=== PATIENT | female | born 1960 | race Caucasian/White ===

== ENCOUNTER 2016-04-21 09:15 | Inpatient (IN) | payer OTHER ==
[2016-04-21] VITALS (17 sets, daily range): BP systolic 81–153; BP diastolic 46–83; PULSE 74–98; TEMP 36.4–36.6; O2SAT 91–100; Ht 167.6 cm; Wt 114.6 kg
[~2016-04-21] VITALS: Ht 167.6 cm; Wt 114.6 kg
[~2016-04-21 09:15] MED LIST: OPTIRAY 320 IV PRN
[2016-04-21] MEDS ORDERED: SODIUM CHLORIDE 0.9% 1000ML 1,000 ML IV ONE (09:16)
--- NOTE | 2016-04-21 09:21 | DIAGNOSTIC IMAGING REPORT ---
CT ANGIOGRAPHY OF THE ABDOMEN AND PELVIS WITH BILATERAL LOWER EXTREMITY RUNOFF CT DOSE: 2549.03 mGy.cm CLINICAL HISTORY: Severe peripheral arterial disease with rest pain. TECHNIQUE: Helical axial images of the abdomen and pelvis and each lower extremity were obtained during arterial phase following intravenous injection of 92 cc of Optiray 320 IV. Sagittal and coronal reconstructions were reviewed as well as maximal intensity projections on an independent 3-D workstation. COMPARISON STUDY: Right lower extremity arterial Doppler April 20, 2016. FINDINGS: Lung bases are clear. Liver surface is somewhat irregular. Heterogeneity of the spleen is likely due to the phase of enhancement. Arterial phase images of the kidneys, adrenal glands and pancreas are normal. There is left colon diverticulosis without evidence for acute diverticulitis. There is no lymphadenopathy. A distal right femoral internal fixation of left knee arthroplasty are incidentally noted. There is moderate atherosclerotic plaque of the abdominal aorta. There is mild stenosis at origin the right renal artery and celiac axis with mild to moderate narrowing of the superior mesenteric artery at multiple sites. There is no significant stenosis of the right common iliac artery. There is focal moderate stenosis of the right external iliac artery. There is severe stenosis of the right common femoral artery just proximal to the bifurcation. There is moderate stenosis of the right common femoral artery more proximally. A right superficial femoral bypass graft is occluded. The right profunda is patent. There is reconstitution of flow at the level of the right popliteal artery. The right calf vessels are diminutive. The right posterior tibial artery is patent. No flow is identified within the distal right anterior tibial artery and dorsalis pedis. The right peroneal artery is patent to the level of the syndesmosis. There is mild stenosis at the origin of the left common iliac artery. There is mild stenosis of the left external iliac artery. There is moderate plaque within the left superficial femoral artery with mild stenosis within the proximal aspect of the left SFA. The left popliteal, posterior tibial, peroneal and anterior tibial arteries are patent although the vessels are diminutive. IMPRESSION: 1. Occlusion of the right superficial femoral artery bypass graft with reconstitution of flow at the level of the popliteal artery. Inflow disease with severe stenosis of the right common femoral artery just proximal to the bifurcation. Patent right profunda. Diminutive right calf vessels with patent peroneal and posterior tibial arteries. No flow identified within the distal right anterior tibial artery and dorsalis pedis. 2. Moderate atherosclerotic plaque within the left lower extremity with mild multifocal stenoses, as described above. Patent left anterior tibial, posterior tibial and peroneal arteries. 3. Moderate plaque of the aortoiliac system, as described above. No aneurysm. Mild stenosis of the right external iliac artery. 4. Lobulated surface contour of the liver which raises the possibility of early cirrhosis. Electronically signed by: Berto Prince M.D. 04/21/2016 9:20 AM Dictated Date/Time: 04/21/2016 8:55 AM
[2016-04-21] MEDS ORDERED: MIDAZOLAM HCL 1 MG/ML 2ML VIAL ONE (10:00)
[2016-04-21] MEDS ORDERED: CEFAZOLIN 3000 MG/65 ML D5W IV SCH (10:00)
[2016-04-21] MEDS ORDERED: FENTANYL CITRATE INJ 50 MCG/1 ML 2 ML VIAL ONE ×2 (10:00→11:31)
[2016-04-21] MEDS ORDERED: PROPOFOL IV EMULSION 10 MG/ML 20 ML VIAL IV ONE (10:00)
[2016-04-21] MEDS ORDERED: PHENYLEPHRINE HCL INJ 10 MG/ML VIAL ONE ×3 (10:00→12:21)
[2016-04-21] MEDS ORDERED: LIDOCAINE HCL 2% 2 ML VIAL (20MG/ML) ONE (10:00)
[2016-04-21] MEDS ORDERED: ROCURONIUM BROMIDE 10 MG/ML 5 ML VIAL ONE ×2 (10:00→13:27)
--- NOTE | 2016-04-21 10:01 | History and Physical ---
History & Physical Date Apr 21, 2016. (Karina Marsh, KOBY) Chief Complaint RLE pain, occluded BPG (Karina Marsh PA-C) History of Present Illness The patient is a 56 year old female with hx of RLE PAD, s/p RLE prosthetic fem- pop BPG performed d/t limiting claudication, HTN, CAD, depression, GERD, COPD, lumbar disc disease, osteoarthritis, seen today after abnormal CTA demonstrating RLE BPG occlusion and comm fem art occlusion, with rest pain. Pt states she had RLE BPG performed at [facility] on 04/06/15, had R groin infection postoperatively which required debridement and wound vac. States she seemed to ambulate better for a time, however, she continued to have some presumed neurogenic claudication which was less severe. States she was doing OK until 4 days ago when she developed severe pain, numbness and coolness of R foot, particularly while lying in bed, which kept her awake for 2 nights. States she had an appt with her PCP 3 days later and they sent her to [facility], where testing was done that demonstrated her R BPG was occluded. CTA this AM confirmed. States her severe pain has subsided, but continues with short distance claudication at approx 20 steps. Denies GONZALEZ, fever, chills, chest pain , SOB, abd pain, N/V, recent illness, cough, ulcerations, other complaints. States she stopped smoking cigarettes as of last evening. (Karina Marsh, KOBY) Allergies Coded Allergies: Aspirin (Unverified Allergy, Unknown, ?, 04/21/16) Metronidazole (Unverified Allergy, Unknown, ?, 04/21/16) Pravastatin (Unverified Allergy, Unknown, ?, 04/21/16) Rosuvastatin (Unverified Allergy, Unknown, ?, 04/21/16) Surgical / Medical History Hx Cardiac Surgery: No Hx Orthopedic: Yes Hx Urinary Tract Surgery: No Past Medical/Surgical History: COPD, Depression, Heart Disease, High Cholesterol, Hypertension, Kidney Disease (Karina Marsh, KOBY) Family History +HTN, CAD, DMII (Karina Marsh PA-C) Social History Smoking Status: Current Every Day Smoker Hx Tobacco Use In Past Year?: Yes Hx Alcohol Use - Type & Amnt: No Hx Substance Use -Type & Amnt: No (Karina Marsh PA-C) Review of Systems Constitutional: No chills, No fever, No malaise Skin: No change in color Eyes: No visual changes ENMT: No sore throat Respiratory: No SOLARES, No cough, No hemoptysis, No short of breath Cardiovascular: + intermittent claudication, No chest pain, No edema, No palpitations Gastrointestinal: No abdominal pain, No nausea, No vomiting Genitourinary - Female: No dysuria, No hematuria Neurologic: + numbness, + paresthesia, No dizziness, No lethargy (Karina Marsh PA-C) Physical Exam Constitutional: General Apperance: well-nourished, well-developed, obese Level of Distress: NAD, chronically ill Ambulation: ambulating normally Psychiatric: Mental Status: active & alert, normal mood, normal affect Orientation: oriented except where noted, to time, to place, to person Memory: recent memory normal, remote memory normal Head: normocephalic, atraumatic Eyes: EOM: EOMI ENMT: normal ENT inspection, hearing grossly normal Neck: no masses, FROM Lungs: Respiratory effort: no dyspnea Auscultation: no rales/crackles, no rhonchi, decreased breath sounds Cardiovascular: Apical Impulse: not displaced Heart Auscultation: RRR, no rubs, no gallops Peripheral Pulses: Pulses: full and equal, in all extremities except if noted Bruits: none appreciated Carotid Pulse: normal on the left, normal on the right Brachial Pulses: normal on the left, normal on the right Radial Pulse: normal on the left, normal on the right Femoral Pulse: normal on the left, absent on the right Posterior Tibialis Pulse: doppler (on LLE) Dorsalis Pedis Pulse: decreased on the left, doppler (very faint doppler RLE ) Abdomen: Bowel Sounds: normal Inspection & Palpation: soft, non-distended, no tenderness, guarding & rebound Musculoskeletal: normal strength (5/5 throughout), normal tone Extremities: Upper Right: no cyanosis, no edema, no varicosities Upper Left: no cyanosis, no edema, no varicosities Lower Right: pertinent finding (R knee with large chronic scar, hyperemic) Lower Left: no cyanosis, no edema, no varicosities Neurologic: Cranial Nerves: grossly intact Sensation: abnormal (decreased to RLE) (Karina Marsh, PA-C) Assessment and Plan ASSESSMENT and PLAN: RLE severe PAD with rest pain Occluded prosthetic BPG R Comm fem art occlusion Pt imaging reviewed by Dr Cochran. D/T severe sx, pt recommended to undergo R comm fem endarterectomy, and possible RLE thrombectomy and angiography with intervention. Procedure, risks, benefits and alternarives discussed with pt, she expresses understanding and agreement. (Karina Marsh, PA-C) Patient was seen, examined, and chart reviewed. Agree with exam and treatment plan of the Vascular PA. I have discussed the risks options and benefits of the procedure with the patient. The patient understands the risks options and benefits and agrees to the procedure. (Christoph Cochran M.D.)
[2016-04-21 10:05] LABS: HEMATOCRIT 40.1 % (37-47); MEAN CELL VOLUME 94.1 fL (80-100); MEAN CORPUSCULAR HEMOGLOBIN 31.7 pg (25-34); MEAN PLATELET VOLUME 9.4 fL (7.4-10.4); PLATELET COUNT 251 K/uL (130-400); RED BLOOD COUNT 4.26 M/uL (4.2-5.4); WHITE BLOOD COUNT 9.13 K/uL (4.8-10.8)
[2016-04-21 10:09] LABS: MEAN CORPUSCULAR HGB CONC 33.7 g/dl (32-36)
[2016-04-21] MEDS ORDERED: OMEG10007 PO (10:11)
[2016-04-21] MEDS ORDERED: GABA-113 PO (10:11)
[2016-04-21] MEDS ORDERED: METO25TA3 PO (10:11)
[2016-04-21] MEDS ORDERED: CHOL2000 PO (10:11)
[2016-04-21] MEDS ORDERED: VENL75CA PO (10:11)
[2016-04-21] MEDS ORDERED: DOCU-94 PO (10:11)
[2016-04-21] MEDS ORDERED: FERR1TAB23 PO (10:11)
[2016-04-21] MEDS ORDERED: MAGN400T6 PO (10:11)
[2016-04-21] MEDS ORDERED: VENL150C PO (10:11)
[2016-04-21] MEDS ORDERED: MULT-506 PO (10:12)
[2016-04-21] MEDS ORDERED: PRLSR20 PO (10:12)
[2016-04-21] MEDS ORDERED: SIMV40TA2 PO (10:12)
[2016-04-21] MEDS ORDERED: CLOP1TAB15 PO (10:12)
[2016-04-21] MEDS ORDERED: CLR10 PO (10:12)
[2016-04-21] MEDS ORDERED: FLUT0.15 (10:12)
[2016-04-21] MEDS ORDERED: ASPI81TA28 PO (10:12)
[2016-04-21 10:16] LABS: PROTHROMBIN TIME (PATIENT) 10.5 SECONDS (9.0-12.0)
[2016-04-21 10:31] LABS: BUN/CREATININE RATIO 30.5 (10-20); CALCIUM 10.5 mg/dl (8.5-10.1); CREATININE 1.1 mg/dl (0.60-1.20); POTASSIUM 4.7 mmol/L (3.5-5.1)
[2016-04-21] MEDS ORDERED: MoRPHine SULFATE PF 1 MG/ML 10 ML AMP/VIAL ONE (12:02)
[2016-04-21] MEDS ORDERED: GELATIN SPONGE SZ 100 TOP ONE (13:23)
[2016-04-21] MEDS ORDERED: CEFAZOLIN SOD 1 GM VIAL IRRIG ONE (13:23)
[2016-04-21] MEDS ORDERED: THROMBIN 5000 UNITS KIT TOP ONE (13:23)
[2016-04-21] MEDS ORDERED: ONDANSETRON INJ 2 MG/ML 2 ML VIAL ONE (13:27)
[2016-04-21] MEDS ORDERED: NEOSTIGMINE METHYLSULFATE 5 MG/5 ML SYR ONE (13:27)
[2016-04-21] MEDS ORDERED: GLYCOPYRROLATE INJ 0.2 MG/ML VIAL ONE (13:27)
[2016-04-21] MEDS ORDERED: DEXAMETHASONE SOD INJ 4 MG/ML VIAL ONE (13:27)
[2016-04-21] MEDS ORDERED: VISIPAQUE (IODIXANOL) INJ 270MG/ML INSTIL ONE (13:28)
[2016-04-21] MEDS ORDERED: HEPARIN SOD (PORCINE) 1000 UNIT/ML 10 ML VIAL ONE (13:29)
--- NOTE | 2016-04-21 13:36 | [facility] Post Operative Brief Note ---
Immediate Operative Summary Operative Date Apr 21, 2016. Pre-Operative Diagnosis Right lower extremity occluded bypass graft Post-Operative Diagnosis Right lower extremity occluded bypass graft Procedure(s) Performed Thrombectomy Right femoral popliteal bypass; Right lower extremity arteriogram, mechanical arthrectomy Right iliac and femoral artery; Balloon angioplasty Right iliac and common femoral artery Surgeon Dr. Cochran Truck Safety Inspector Surgeon(s) Karina Paul PA-C Estimated Blood Loss 300cc Findings good dp to doppler Specimens clot Anesthesia Gen Complication(s) None Disposition Recovery Room / PACU
[2016-04-21] MEDS ORDERED: METOPROLOL SUCC 25MG EXT REL TAB PO PRN (13:45)
[2016-04-21] MEDS ORDERED: MoRPHine SULFATE 4 MG/ML 1 ML CARP\\VIAL IV PRN (13:45)
[2016-04-21] MEDS ORDERED: ONDANSETRON INJ 2 MG/ML 2 ML VIAL IV PRN ×2 (13:45→14:15)
[2016-04-21] MEDS ORDERED: GABAPENTIN 300 MG CAP PO PRN (13:45)
[2016-04-21] MEDS ORDERED: HYDROmorphone INJ 2 MG/ML SYR/VIAL ONE (14:05)
[2016-04-21 14:10] LABS: BASO % 0.2 %; BASO ABS # 0.03 K/uL (0-0.2); COMPLETE YES; HEMATOCRIT 32.3 % (37-47); IG% 0.6 %; LYMPH % 32.1 %; LYMPH ABS # 4.02 K/uL (1.2-3.4); MEAN CELL VOLUME 94.4 fL (80-100); MEAN CORPUSCULAR HEMOGLOBIN 32.2 pg (25-34); MEAN CORPUSCULAR HGB CONC 34.1 g/dl (32-36); MONO % 7.4 %; NEUT % 58.7 %; PLATELET COUNT 231 K/uL (130-400); RED BLOOD COUNT 3.42 M/uL (4.2-5.4); WHITE BLOOD COUNT 12.53 K/uL (4.8-10.8)
[2016-04-21] MEDS: HYDROmorphone INJ 2 MG/ML SYR/VIAL IV PRN ×4 (14:10→14:25)
[2016-04-21] MEDS ORDERED: PHENYLEPHRINE 100MCG/ML 5ML SYR IV PRN (14:15)
[2016-04-21] MEDS ORDERED: ATROPINE SULFATE 0.1 MG/ML 5ML SYR IV PRN (14:15)
[2016-04-21] MEDS ORDERED: EpHEDrine SULFATE INJ 50 MG/ML AMP IV PRN (14:15)
[2016-04-21] MEDS ORDERED: MoRPHine SULFATE 2 MG/ML CARP IV PRN (14:30)
--- NOTE | 2016-04-21 15:16 | Anesthesiology Progress Note ---
Anesthesia Post Op Note Date & Time Apr 21, 2016 at 15:15 Vital Signs Pain Intensity: 0 Vital Signs Past 12 Hours Date Time Temp Pulse Resp B/P Pulse Ox O2 Delivery O2 Flow Rate FiO2 04/21/16 14:49 37.0 79 16 107/64 95 Nasal Cannula 2 04/21/16 14:41 82 15 04/21/16 14:41 81 15 94 04/21/16 14:38 89/68 04/21/16 14:36 73 11 93 04/21/16 14:36 73 11 04/21/16 14:33 90/63 04/21/16 14:31 79 10 04/21/16 14:31 80 10 94 04/21/16 14:28 110/61 04/21/16 14:26 79 15 04/21/16 14:26 78 15 98 04/21/16 14:25 74 17 04/21/16 14:25 74 17 96 04/21/16 14:23 112/99 04/21/16 14:20 73 13 97 04/21/16 14:20 73 13 04/21/16 14:18 111/64 04/21/16 14:15 72 11 98 04/21/16 14:15 71 11 04/21/16 14:13 130/72 04/21/16 14:10 72 20 04/21/16 14:10 73 20 98 04/21/16 14:08 139/68 04/21/16 14:05 76 16 04/21/16 14:05 76 16 99 04/21/16 14:04 157/78 04/21/16 13:58 136/70 04/21/16 13:55 36.5 75 15 136/70 100 Mask 10 04/21/16 13:55 73 16 04/21/16 13:55 73 16 98 04/21/16 13:53 153/80 04/21/16 13:50 36.5 75 15 141/73 100 Mask 10 04/21/16 13:50 79 22 04/21/16 13:50 79 22 141/73 88 04/21/16 13:45 36.5 79 21 141/73 99 Mask 10 04/21/16 10:25 75 14 97 Room Air 04/21/16 09:18 36.4 78 18 153/83 96 Room Air Notes Mental Status: alert / awake / arousable, participated in evaluation Pt Amnestic to Procedure: Yes Nausea / Vomiting: adequately controlled Pain: adequately controlled Airway Patency, RR, SpO2: stable & adequate BP & HR: stable & adequate Hydration State: stable & adequate Anesthetic Complications: no major complications apparent
[2016-04-21 15:29] LABS: BLOOD UREA NITROGEN 31 mg/dl (7-18); BUN/CREATININE RATIO 26.1 (10-20); CALCIUM 9.2 mg/dl (8.5-10.1); CARBON DIOXIDE 21 mmol/L (21-32); CHLORIDE 110 mmol/L (98-107); GLUCOSE 136 mg/dl (70-99); SODIUM 141 mmol/L (136-145)
[2016-04-21] MEDS ORDERED: INFLUENZA VIRUS QUAD VACCINE 0.5 ML SYR IM. ONE (17:00)
[2016-04-21] MEDS ORDERED: INFLUENZA ADMINISTRATION CHARGE ONE (17:00)
[2016-04-21] MEDS: CEFAZOLIN IV 3,000 MG in DEXTROSE 5% 50ML 50 ML IV SCH (17:40)
[2016-04-21] MEDS ORDERED: NURSING VERBAL MED ORDER ONE ×3 (17:45→22:45)
--- NOTE | 2016-04-21 18:43 | Critical Care Consultation ---
Critical Care Consultation Date of Consultation: Apr 21, 2016. Attending Physician: Christoph Cochran M.D. Reason for Consultation: post op vascular surgery, hx of COPD. History of Present Illness Dear Dr. Cochran: Thank you for your kind referral of Mrs. Nash to critical care service. this is a 56 yo female with hx of extensive PAD and COPD, active smoker , the pt presented with continuous claudication on the right. she did have a previous Fem pop graft , interrogated in march 2015. back then her procedure was complicated with wound infection requiring debridement. on her presentation she did have CTA showing occlusion of the fem pop graft and was taken to the OR , she underwent , right fem artery endarterectomy with Balloon angioplasty and angiogram with good patency . the pt brought to the ICU due to her comorbidity. in the ICU, the pt denies any pain , minimal discomfort reported, no sob , no cough or sputum production recently. she does not use O2 but she uses inhalers at home, she does not remember them, she denies admission for resp issues in the past. no pain in her lower ext on the right, Family History not contributing to her current illness. Social History Smoking Status: Current Every Day Smoker Alcohol Use: none Drug Use: none Housing Status: lives with family Occupation Status: unemployed Allergies Coded Allergies: Metronidazole (Verified Adverse Reaction, Mild, upset stomach, 04/21/16) Pravastatin (Verified Adverse Reaction, Mild, leg cramps, 04/21/16) Rosuvastatin (Verified Adverse Reaction, Mild, leg cramps, 04/21/16) Home Medications Scheduled Aspirin (Aspirin Ec), 81 MG PO DAILY Cholecalciferol (Vitamin D3), 1 CAP PO DAILY Clopidogrel (Plavix), 75 MG PO DAILY Docusate Sodium (Colace), 1 CAP PO BID Ferrous Sulfate (Iron), PO BID Fish Oil ([place]-3), 1 CAP PO BID Loratadine (Claritin), 10 MG PO DAILY Magnesium Oxide (Mag-Ox), 400 MG PO BID Multivitamin (Multivitamin), 1 TAB PO DAILY Omeprazole (Prilosec), 20 MG PO DAILY Simvastatin (Zocor), 40 MG PO QPM Venlafaxine Hcl (Effexor Xr), 1 CAP PO DAILY Venlafaxine Hcl (Effexor Xr), 1 CAP PO DAILY Scheduled PRN Gabapentin (Neurontin), 300 MG PO BID PRN for Pain Metoprolol Succ (Toprol Xl) (Toprol-Xl), 25 MG PO BID PRN for Blood Pressure Miscellaneous Medications Fluticasone Propionate (Nasal) (Flonase Allergy Relief), 50 NA Current Inpatient Medications Current Inpatient Medications Medications (Trade) Dose Ordered Sig/Kimberly Route Start Time Stop Time Status Last Admin Dose Admin Ioversol 125 ml 125 ml UD PRN IV 04/21/16 08:15 04/25/16 08:14 Sodium Chloride (Nss 1000ml) 1,000 ml @ 80 mls/hr [id number] ONCE IV 04/21/16 09:16 04/21/16 21:45 04/21/16 10:00 80 MLS/HR Acetaminophen (Tylenol Tab) 650 mg Q4H PRN PO 04/21/16 13:45 05/21/16 13:44 Oxycodone/ Acetaminophen (Percocet 5-325mg Tab) `1-2 TABS FOR MODER... Q4H PRN PO 04/21/16 13:45 05/05/16 13:44 Morphine Sulfate (MoRPHine SULFATE INJ) If PO analgesic is orde... Q2H PRN IV 04/21/16 13:45 05/05/16 13:44 Ondansetron HCl 4 mg 4 mg Q6H PRN IV 04/21/16 13:45 05/21/16 13:44 Cefazolin Sodium/ Dextrose (Ancef Iv/D5 50ml) 65 ml @ 100 mls/hr Q8H IV 04/21/16 18:00 04/22/16 02:38 04/21/16 17:40 100 MLS/HR Enoxaparin Sodium (Lovenox Inj) 30 mg Q12 SQ 04/22/16 08:00 05/22/16 07:59 Aspirin (Ecotrin Tab) 81 mg DAILY PO 04/22/16 09:00 05/22/16 08:59 Clopidogrel Bisulfate (plAVix TAB) 75 mg DAILY PO 04/22/16 09:00 05/22/16 08:59 Docusate Sodium (coLACE CAP) 100 mg BID PO 04/21/16 21:00 05/21/16 20:59 Fish Oil ([place]-3 (Purified Fish Oil) Cap) 1 gm BID PO 04/21/16 21:00 05/21/16 20:59 Fluticasone Propionate (Flonase Nas[place]) 1 sprays DAILY NA 04/22/16 09:00 05/22/16 08:59 Gabapentin (Neurontin Cap) 300 mg BID PRN PO 04/21/16 13:45 05/21/16 13:44 Loratadine (Claritin Tab) 10 mg DAILY PO 04/22/16 09:00 05/22/16 08:59 Magnesium Oxide (Mag-Ox Tab) 400 mg BID PO 04/21/16 21:00 05/21/16 20:59 Metoprolol Succinate (Toprol Xl Tab) 25 mg BID PRN PO 04/21/16 13:45 05/21/16 13:44 Multivitamins (Multivitamin Tab) 1 tab DAILY PO 04/22/16 09:00 05/22/16 08:59 Simvastatin (Zocor Tab) 40 mg QPM PO 04/21/16 21:00 05/21/16 20:59 Venlafaxine HCl (effeXOR EXTENDED REL CAP) 75 mg DAILY PO 04/22/16 09:00 05/22/16 08:59 Venlafaxine HCl (effeXOR EXTENDED REL CAP) 150 mg DAILY PO 04/22/16 09:00 05/22/16 08:59 Cholecalciferol (Vitamin D Tab) 2,000 inter.unit DAILY PO 04/22/16 09:00 05/22/16 08:59 Hydromorphone HCl (Dilaudid Inj) 0.5 mg Q5M PRN IV 04/21/16 14:15 04/21/16 19:15 04/21/16 14:25 0.5 MG Ondansetron HCl (Zofran Inj) 4 mg ONE PRN IV 04/21/16 14:15 04/21/16 19:15 Ephedrine Sulfate (EpHEDrine SULFATE INJ) 5 mg Q5M PRN IV 04/21/16 14:15 04/21/16 19:15 Atropine Sulfate (Atropine Sulfate 0.1MG/Ml Inj) 0.5 mg Q1M PRN IV 04/21/16 14:15 04/21/16 19:15 Phenylephrine HCl (Lucio-Synephrine 500MCG/5ML Syr) 100 mcg Q5M PRN IV 04/21/16 14:15 04/21/16 19:15 Morphine Sulfate (MoRPHine SULFATE INJ) If PO analgesic is orde... Q2H PRN IV 04/21/16 14:30 05/05/16 14:29 Pantoprazole Sodium (Protonix Tab) 40 mg QAM PO 04/21/16 18:30 05/21/16 18:29 Review of Systems Constitutional: No fatigue, No problem reported, No weakness, No weight loss Abdomen: + problem reported (mild right groin pain , minimal per pt. ) Physical Exam Date Time Temp Pulse Resp B/P Pulse Ox O2 Delivery O2 Flow Rate FiO2 04/21/16 18:14 81 16 98/63 94 Nasal Cannula 2.0 04/21/16 17:28 77 15 105/56 94 Nasal Cannula 2.0 04/21/16 16:59 84 13 116/60 95 Nasal Cannula 2.0 04/21/16 16:30 83 14 116/72 92 Nasal Cannula 2.0 04/21/16 16:00 Nasal Cannula 2.0 04/21/16 15:45 36.6 82 16 100/60 96 Nasal Cannula 2.0 04/21/16 15:40 36.6 82 16 100/76 96 Nasal Cannula 2.0 04/21/16 15:13 96/55 04/21/16 15:12 71 16 04/21/16 15:12 70 16 94 04/21/16 15:08 110/66 04/21/16 15:07 74 16 04/21/16 15:07 74 16 93 04/21/16 15:03 108/65 04/21/16 15:02 80 11 93 04/21/16 15:02 80 11 04/21/16 14:58 91/75 04/21/16 14:57 77 7 04/21/16 14:57 77 7 93 04/21/16 14:52 80 13 95 04/21/16 14:52 80 13 04/21/16 14:49 37.0 79 16 107/64 95 Nasal Cannula 2 04/21/16 14:48 107/64 04/21/16 14:47 77 12 04/21/16 14:47 78 12 88 04/21/16 14:43 107/61 04/21/16 14:42 83 26 04/21/16 14:42 84 26 96 04/21/16 14:41 82 15 04/21/16 14:41 81 15 94 04/21/16 14:38 89/68 04/21/16 14:36 73 11 93 04/21/16 14:36 73 11 04/21/16 14:33 90/63 04/21/16 14:31 79 10 04/21/16 14:31 80 10 94 04/21/16 14:28 110/61 04/21/16 14:26 79 15 04/21/16 14:26 78 15 98 04/21/16 14:25 74 17 04/21/16 14:25 74 17 96 04/21/16 14:23 112/99 04/21/16 14:20 73 13 97 04/21/16 14:20 73 13 04/21/16 14:18 111/64 04/21/16 14:15 72 11 98 04/21/16 14:15 71 11 04/21/16 14:13 130/72 04/21/16 14:10 72 20 04/21/16 14:10 73 20 98 04/21/16 14:08 139/68 04/21/16 14:05 76 16 04/21/16 14:05 76 16 99 04/21/16 14:04 157/78 04/21/16 13:58 136/70 04/21/16 13:55 36.5 75 15 136/70 100 Mask 10 04/21/16 13:55 73 16 04/21/16 13:55 73 16 98 04/21/16 13:53 153/80 04/21/16 13:50 36.5 75 15 141/73 100 Mask 10 04/21/16 13:50 79 22 04/21/16 13:50 79 22 141/73 88 04/21/16 13:45 36.5 79 21 141/73 99 Mask 10 04/21/16 10:25 75 14 97 Room Air 04/21/16 09:18 36.4 78 18 153/83 96 Room Air General Appearance: WD/WN Head: normocephalic Eyes: normal inspection ENT: normal ENT inspection Neck: supple Respiratory/Chest: normal breath sounds, no respiratory distress, no accessory muscle use Cardiovascular: regular rate, rhythm Abdomen/GI: normal bowel sounds Extremities/Musculoskelatal: + pertinent finding (pulses are palp in the right post tib and pedals. as well as the left. ) Laboratory Results Last 24 Hours Test 04/21/16 09:55 04/21/16 13:59 04/21/16 14:56 White Blood Count 9.13 K/uL 12.53 K/uL Red Blood Count 4.26 M/uL 3.42 M/uL Hemoglobin 13.5 g/dL 11.0 g/dL Hematocrit 40.1 % 32.3 % Mean Corpuscular Volume 94.1 fL 94.4 fL Mean Corpuscular Hemoglobin 31.7 pg 32.2 pg Mean Corpuscular Hemoglobin Concent 33.7 g/dl 34.1 g/dl RDW Standard Deviation 48.8 fL 49.9 fL RDW Coefficient of Variation 14.4 % 14.6 % Platelet Count 251 K/uL 231 K/uL Mean Platelet Volume 9.4 fL 9.0 fL Prothrombin Time 10.5 SECONDS Prothromb Time International Ratio 1.0 Activated Partial Thromboplast Time 26.3 SECONDS Partial Thromboplastin Ratio 1.0 Sodium Level 141 mmol/L 141 mmol/L Potassium Level 4.7 mmol/L mmol/L Chloride Level 109 mmol/L 110 mmol/L Carbon Dioxide Level 23 mmol/L 21 mmol/L Anion Gap 9.0 mmol/L 10.0 mmol/L Blood Urea Nitrogen 34 mg/dl 31 mg/dl Creatinine 1.10 mg/dl 1.20 mg/dl Est Creatinine Clear Calc Drug Dose 70.8 ml/min 64.9 ml/min Estimated GFR () 64.1 57.7 Estimated GFR (Non- 55.3 49.8 BUN/Creatinine Ratio 30.5 26.1 Random Glucose 102 mg/dl 136 mg/dl Calcium Level 10.5 mg/dl 9.2 mg/dl Neutrophils (%) (Auto) 58.7 % Lymphocytes (%) (Auto) 32.1 % Monocytes (%) (Auto) 7.4 % Eosinophils (%) (Auto) 1.0 % Basophils (%) (Auto) 0.2 % Neutrophils # (Auto) 7.35 K/uL Lymphocytes # (Auto) 4.02 K/uL Monocytes # (Auto) 0.93 K/uL Eosinophils # (Auto) 0.12 K/uL Basophils # (Auto) 0.03 K/uL Immature Granulocyte % (Auto) 0.6 % Immature Granulocyte # (Auto) 0.08 K/uL Diagnostic Results reviewed CTA results and labs. slight leukocytosis. slight elevation in her creat. Assessment & Plan #1 PAD , s/p thrombectomy and endarterectomy right fem. old graft occlusion. #2 COPD currently stable. #3 CAD , stable . #4 active smoker. Plan: #1 continue peripheral arterial check . #2 ASA and Plavix. #3 DVT prophylaxis. #4 Prn Inhalers. #5 monitor in the ICU. #6 oral intake. discussed with the pt and the staff . Meds reviewed. CCT 45 min.
[2016-04-21] MEDS: PANTOprazole SOD 40 MG TAB PO SCH (19:56)
[2016-04-21] MEDS ORDERED: ALBUT/IPRATROP 3MG/0.5MG NEB 3 ML VIAL INH SCH (20:00)
[2016-04-21] MEDS: DOCUSATE SODIUM 100 MG CAP PO SCH (21:14)
[2016-04-21] MEDS: SIMVASTATIN 40 MG TAB PO SCH (21:14)
[2016-04-21] MEDS: OMEGA-3 (PURIFIED FISH OIL) 1 GM CAP PO SCH (21:15)
[2016-04-21] MEDS: MAGNESIUM OXIDE 400 MG TAB PO SCH (21:15)
[2016-04-21] MEDS ORDERED: SODIUM CHLORIDE 0.9% 500ML 500 ML IV STA ×2 (22:08→22:57)
[2016-04-21 23:17] LABS: HEMATOCRIT 31.1 % (37-47)
[2016-04-22] VITALS (35 sets, daily range): BP systolic 78–145; BP diastolic 38–69; PULSE 69–101; TEMP 36.7–37.2; O2SAT 91–98
[2016-04-22] MEDS ORDERED: NURSING VERBAL MED ORDER ONE ×2 (00:15→00:30)
[2016-04-22] MEDS: ACETAMINOPHEN 325 MG TAB PO PRN ×2 (00:19→16:23)
[2016-04-22] MEDS ORDERED: PHENYLEPHRINE HCL INJ 20 MG in DEXTROSE 5% 500ML 500 ML IV PRN (00:45)
[2016-04-22] MEDS: SODIUM CHLORIDE 0.9% 1000ML 1,000 ML IV SCH ×2 (00:45→15:33)
[2016-04-22] MEDS: CEFAZOLIN IV 3,000 MG in DEXTROSE 5% 50ML 50 ML IV SCH (02:04)
[2016-04-22 05:39] LABS: BASO % 0.1 %; BASO ABS # 0.02 K/uL (0-0.2); COMPLETE YES; HEMATOCRIT 28.5 % (37-47); IG% 0.9 %; LYMPH % 12.4 %; LYMPH ABS # 2.51 K/uL (1.2-3.4); MEAN CELL VOLUME 97.9 fL (80-100); MEAN CORPUSCULAR HEMOGLOBIN 31.6 pg (25-34); MEAN CORPUSCULAR HGB CONC 32.3 g/dl (32-36); MEAN PLATELET VOLUME 9.6 fL (7.4-10.4); MONO % 9.4 %; NEUT % 77.2 %; PLATELET COUNT 234 K/uL (130-400); RED BLOOD COUNT 2.91 M/uL (4.2-5.4)
[2016-04-22] MEDS ORDERED: CEFAZOLIN IV 3,000 MG in DEXTROSE 5% 50ML 50 ML IV ONE (06:00)
[2016-04-22 06:01] LABS: BUN/CREATININE RATIO 21.3 (10-20); CALCIUM 8.1 mg/dl (8.5-10.1); CREATININE 1.8 mg/dl (0.60-1.20); POTASSIUM 5.1 mmol/L (3.5-5.1)
[2016-04-22] MEDS: PANTOprazole SOD 40 MG TAB PO SCH (07:48)
[2016-04-22] MEDS: OMEGA-3 (PURIFIED FISH OIL) 1 GM CAP PO SCH ×2 (07:48→21:05)
[2016-04-22] MEDS: CHOLECALCIFEROL 1000 INTER.UNIT TAB PO SCH (07:48)
[2016-04-22] MEDS: ENOXAPARIN 30 MG/0.3 ML SYR SQ SCH ×2 (07:48→21:05)
[2016-04-22] MEDS: VENLAFAXINE HCL XR 75 MG CAPXR PO SCH (07:48)
[2016-04-22] MEDS: CLOPIDOGREL BISULFATE 75 MG TAB PO SCH (07:49)
[2016-04-22] MEDS: MAGNESIUM OXIDE 400 MG TAB PO SCH ×2 (07:49→21:06)
[2016-04-22] MEDS: LORATADINE 10 MG TAB PO SCH (07:49)
[2016-04-22] MEDS: FLUTICASONE PROPIONATE NA SPR 16 GM BTL SCH (07:49)
[2016-04-22] MEDS: ASPIRIN 81 MG ECTAB PO SCH (07:49)
[2016-04-22] MEDS: VENLAFAXINE HCL XR 150 MG CAPXR PO SCH (07:49)
[2016-04-22] MEDS: DOCUSATE SODIUM 100 MG CAP PO SCH ×2 (07:49→21:06)
[2016-04-22] MEDS: MULTIVITAMIN TAB PO SCH (07:50)
[2016-04-22] MEDS: GABAPENTIN 300 MG CAP PO SCH ×2 (08:44→21:06)
--- NOTE | 2016-04-22 08:52 | Critical Care Progress Note ---
Critical Care Progress Note Date of Service Apr 22, 2016. Attending Dr. Sepulveda Subjective denies pain, minimal discomfort at the surgical site as expected. no sob, tremor which has been old according to the pt. no nausea and tolerating orals. no sob or chest pain. good sensation and fiberglass bonding machine tender the periphery. Objective brief period of hypotension requiring briefly Phenylephrine . fluid responsive. slight rise in creat. Assessment & Plan #1 PAD, s/p thrombectomy right fem with endarterectomy. #2 COPD, stable not on meds, active smoker. #3 Peripheral neuropathy. #4 CKD , stage III. #5 Osteo arth. Plan: #1 Pre-renal hypotension , responded to the IVF. off pressor, ( needed for a short period of time). #2 mild worsening in renal function, also, pre- renal ( ratio < 1). #3 decrease Neurontin in the face of Bun and creat rise to 300 mg bid. keep it standing. #4 change Bronchodilators to prn. #5 oral intake. #6 Lovenox for DVt prophylaxis. #7 continue IVF. #8 dc Morphine ( CKD III). #9 Oxycodone for pain. #[address] Cochran. discussed with the staff in details. CCT 35 min. Data Medications: Current Inpatient Medications Medications (Trade) Dose Ordered Sig/Kimberly Route Start Time Stop Time Status Last Admin Dose Admin Ioversol (Optiray 320) 125 ml UD PRN IV 04/21/16 08:15 04/25/16 08:14 Acetaminophen (Tylenol Tab) 650 mg Q4H PRN PO 04/21/16 13:45 05/21/16 13:44 04/22/16 00:19 650 MG Oxycodone/ Acetaminophen (Percocet 5-325mg Tab) `1-2 TABS FOR MODER... Q4H PRN PO 04/21/16 13:45 05/05/16 13:44 Ondansetron HCl (Zofran Inj) 4 mg Q6H PRN IV 04/21/16 13:45 05/21/16 13:44 Enoxaparin Sodium (Lovenox Inj) 30 mg Q12 SQ 04/22/16 08:00 05/22/16 07:59 04/22/16 07:48 30 MG Aspirin (Ecotrin Tab) 81 mg DAILY PO 04/22/16 09:00 05/22/16 08:59 04/22/16 07:49 81 MG Clopidogrel Bisulfate (plAVix TAB) 75 mg DAILY PO 04/22/16 09:00 05/22/16 08:59 04/22/16 07:49 75 MG Docusate Sodium (coLACE CAP) 100 mg BID PO 04/21/16 21:00 05/21/16 20:59 04/22/16 07:49 100 MG Fish Oil ([place]-3 (Purified Fish Oil) Cap) 1 gm BID PO 04/21/16 21:00 05/21/16 20:59 04/22/16 07:48 1 GM Fluticasone Propionate (Flonase Nasal [place]) 1 sprays DAILY NA 04/22/16 09:00 05/22/16 08:59 04/22/16 07:49 1 SPRAYS Loratadine (Claritin Tab) 10 mg DAILY PO 04/22/16 09:00 05/22/16 08:59 04/22/16 07:49 10 MG Magnesium Oxide (Mag-Ox Tab) 400 mg BID PO 04/21/16 21:00 05/21/16 20:59 04/22/16 07:49 400 MG Metoprolol Succinate (Toprol Xl Tab) 25 mg BID PRN PO 04/21/16 13:45 05/21/16 13:44 Multivitamins (Multivitamin Tab) 1 tab DAILY PO 04/22/16 09:00 05/22/16 08:59 04/22/16 07:50 1 TAB Simvastatin (Zocor Tab) 40 mg QPM PO 04/21/16 21:00 05/21/16 20:59 04/21/16 21:14 40 MG Venlafaxine HCl (effeXOR EXTENDED REL CAP) 75 mg DAILY PO 04/22/16 09:00 05/22/16 08:59 04/22/16 07:48 75 MG Venlafaxine HCl (effeXOR EXTENDED REL CAP) 150 mg DAILY PO 04/22/16 09:00 05/22/16 08:59 04/22/16 07:49 150 MG Cholecalciferol (Vitamin D Tab) 2,000 inter.unit DAILY PO 04/22/16 09:00 05/22/16 08:59 04/22/16 07:48 2,000 INTER.UNIT Pantoprazole Sodium 40 mg 40 mg QAM PO 04/21/16 18:30 05/21/16 18:29 04/22/16 07:48 40 MG Sodium Chloride 1,000 ml @ 80 mls/hr [id number] IV 04/22/16 00:15 05/22/16 00:14 04/22/16 00:45 80 MLS/HR Phenylephrine HCl/ Dextrose (Lucio-Synephrine Inj/D5W 500ml) 502 ml @ 0 mls/hr Q0M PRN IV 04/22/16 00:45 05/22/16 00:44 04/22/16 01:02 42 MLS/HR Albuterol/ Ipratropium (Duoneb) 3 ml QIDR PRN INH 04/22/16 12:00 05/22/16 11:59 Gabapentin (Neurontin Cap) 300 mg BID PO 04/22/16 09:00 05/22/16 08:59 UNV I & O: 24-Hour Column 04/22/16 07:59 Intake Total 5899 ml Output Total 1150 ml Balance 4749 ml Vital Signs: Date Time Temp Pulse Resp B/P Pulse Ox O2 Delivery O2 Flow Rate FiO2 04/22/16 08:29 82 18 97/45 91 Room Air 04/22/16 07:59 36.8 88 19 127/54 94 Room Air 04/22/16 07:28 93 18 145/52 97 Nasal Cannula 2.0 04/22/16 06:58 76 18 114/52 95 Nasal Cannula 2.0 04/22/16 05:59 74 16 109/50 98 Nasal Cannula 2.0 04/22/16 05:28 82 15 114/58 Nasal Cannula 04/22/16 04:28 79 16 118/62 91 Nasal Cannula 2.0 04/22/16 04:00 Nasal Cannula 2.0 04/22/16 03:58 36.9 71 19 107/43 92 Nasal Cannula 2.0 04/22/16 03:28 76 17 104/49 91 Nasal Cannula 2.0 04/22/16 02:58 79 18 112/44 94 Nasal Cannula 2.0 04/22/16 02:28 83 21 107/60 95 Nasal Cannula 2.0 04/22/16 01:58 86 15 98/62 92 Nasal Cannula 2.0 04/22/16 01:43 78 12 104/69 93 Nasal Cannula 2.0 04/22/16 01:09 71 15 108/66 96 04/22/16 01:03 69 16 106/57 96 04/22/16 00:58 77 26 94/56 95 04/22/16 00:53 80 22 83/47 97 04/22/16 00:43 77 15 84/58 94 04/22/16 00:42 72 14 99/54 94 04/22/16 00:28 73 18 78/55 94 04/22/16 00:23 73 18 97/46 95 04/22/16 00:00 Nasal Cannula 2.0 04/21/16 23:58 76 19 109/62 92 Nasal Cannula 2.0 04/21/16 23:44 74 15 101/50 95 Nasal Cannula 2.0 04/21/16 22:58 82 13 103/46 94 Nasal Cannula 2.0 04/21/16 22:39 88 12 81/55 95 Nasal Cannula 2.0 04/21/16 22:28 84 14 82/48 98 Nasal Cannula 2.0 04/21/16 22:01 98 23 85/52 98 04/21/16 22:01 98 23 85/52 98 Nasal Cannula 2.0 04/21/16 21:09 87 21 101/48 96 Nasal Cannula 2.0 04/21/16 20:18 89 16 100 Nasal Cannula 2.0 04/21/16 20:03 36.5 76 17 104/52 91 Nasal Cannula 2.0 04/21/16 20:00 Nasal Cannula 2.0 04/21/16 18:14 81 16 98/63 94 Nasal Cannula 2.0 04/21/16 17:28 77 15 105/56 94 Nasal Cannula 2.0 04/21/16 16:59 84 13 116/60 95 Nasal Cannula 2.0 04/21/16 16:30 83 14 116/72 92 Nasal Cannula 2.0 04/21/16 16:00 Nasal Cannula 2.0 04/21/16 15:45 36.6 82 16 100/60 96 Nasal Cannula 2.0 04/21/16 15:40 36.6 82 16 100/76 96 Nasal Cannula 2.0 04/21/16 15:13 96/55 04/21/16 15:12 71 16 04/21/16 15:12 70 16 94 04/21/16 15:08 110/66 04/21/16 15:07 74 16 04/21/16 15:07 74 16 93 04/21/16 15:03 108/65 04/21/16 15:02 80 11 93 04/21/16 15:02 80 11 04/21/16 14:58 91/75 04/21/16 14:57 77 7 04/21/16 14:57 77 7 93 04/21/16 14:52 80 13 95 04/21/16 14:52 80 13 04/21/16 14:49 37.0 79 16 107/64 95 Nasal Cannula 2 04/21/16 14:48 107/64 04/21/16 14:47 77 12 04/21/16 14:47 78 12 88 04/21/16 14:43 107/61 04/21/16 14:42 83 26 04/21/16 14:42 84 26 96 04/21/16 14:41 82 15 04/21/16 14:41 81 15 94 04/21/16 14:38 89/68 04/21/16 14:36 73 11 93 04/21/16 14:36 73 11 04/21/16 14:33 90/63 04/21/16 14:31 79 10 04/21/16 14:31 80 10 94 04/21/16 14:28 110/61 04/21/16 14:26 79 15 04/21/16 14:26 78 15 98 04/21/16 14:25 74 17 04/21/16 14:25 74 17 96 04/21/16 14:23 112/99 04/21/16 14:20 73 13 97 04/21/16 14:20 73 13 04/21/16 14:18 111/64 04/21/16 14:15 72 11 98 04/21/16 14:15 71 11 04/21/16 14:13 130/72 04/21/16 14:10 72 20 04/21/16 14:10 73 20 98 04/21/16 14:08 139/68 04/21/16 14:05 76 16 04/21/16 14:05 76 16 99 04/21/16 14:04 157/78 04/21/16 13:58 136/70 04/21/16 13:55 36.5 75 15 136/70 100 Mask 10 04/21/16 13:55 73 16 04/21/16 13:55 73 16 98 04/21/16 13:53 153/80 04/21/16 13:50 36.5 75 15 141/73 100 Mask 10 04/21/16 13:50 79 22 04/21/16 13:50 79 22 141/73 88 04/21/16 13:45 36.5 79 21 141/73 99 Mask 10 04/21/16 10:25 75 14 97 Room Air 04/21/16 09:18 36.4 78 18 153/83 96 Room Air VSS, now bp 126/76. S1S2 RRR. lungs are clear. abdomen obese but benign. pedal and post tib pulses are palpable. fiberglass bonding machine tender the periphery, good capillary filling in the toes, right and left sides. Laboratory Results: Last 24 Hours Test 04/21/16 09:55 04/21/16 13:59 04/21/16 14:56 04/21/16 23:11 White Blood Count 9.13 K/uL 12.53 K/uL Red Blood Count 4.26 M/uL 3.42 M/uL Hemoglobin 13.5 g/dL 11.0 g/dL 10.1 g/dL Hematocrit 40.1 % 32.3 % 31.1 % Mean Corpuscular Volume 94.1 fL 94.4 fL Mean Corpuscular Hemoglobin 31.7 pg 32.2 pg Mean Corpuscular Hemoglobin Concent 33.7 g/dl 34.1 g/dl RDW Standard Deviation 48.8 fL 49.9 fL RDW Coefficient of Variation 14.4 % 14.6 % Platelet Count 251 K/uL 231 K/uL Mean Platelet Volume 9.4 fL 9.0 fL Prothrombin Time 10.5 SECONDS Prothromb Time International Ratio 1.0 Activated Partial Thromboplast Time 26.3 SECONDS Partial Thromboplastin Ratio 1.0 Sodium Level 141 mmol/L 141 mmol/L Potassium Level 4.7 mmol/L mmol/L Chloride Level 109 mmol/L 110 mmol/L Carbon Dioxide Level 23 mmol/L 21 mmol/L Anion Gap 9.0 mmol/L 10.0 mmol/L Blood Urea Nitrogen 34 mg/dl 31 mg/dl Creatinine 1.10 mg/dl 1.20 mg/dl Est Creatinine Clear Calc Drug Dose 70.8 ml/min 64.9 ml/min Estimated GFR () 64.1 57.7 Estimated GFR (Non- 55.3 49.8 BUN/Creatinine Ratio 30.5 26.1 Random Glucose 102 mg/dl 136 mg/dl Calcium Level 10.5 mg/dl 9.2 mg/dl Neutrophils (%) (Auto) 58.7 % Lymphocytes (%) (Auto) 32.1 % Monocytes (%) (Auto) 7.4 % Eosinophils (%) (Auto) 1.0 % Basophils (%) (Auto) 0.2 % Neutrophils # (Auto) 7.35 K/uL Lymphocytes # (Auto) 4.02 K/uL Monocytes # (Auto) 0.93 K/uL Eosinophils # (Auto) 0.12 K/uL Basophils # (Auto) 0.03 K/uL Immature Granulocyte % (Auto) 0.6 % Immature Granulocyte # (Auto) 0.08 K/uL Test 04/22/16 04:40 White Blood Count 20.20 K/uL Red Blood Count 2.91 M/uL Hemoglobin 9.2 g/dL Hematocrit 28.5 % Mean Corpuscular Volume 97.9 fL Mean Corpuscular Hemoglobin 31.6 pg Mean Corpuscular Hemoglobin Concent 32.3 g/dl Platelet Count 234 K/uL Mean Platelet Volume 9.6 fL Neutrophils (%) (Auto) 77.2 % Lymphocytes (%) (Auto) 12.4 % Monocytes (%) (Auto) 9.4 % Eosinophils (%) (Auto) 0.0 % Basophils (%) (Auto) 0.1 % Neutrophils # (Auto) 15.60 K/uL Lymphocytes # (Auto) 2.51 K/uL Monocytes # (Auto) 1.89 K/uL Eosinophils # (Auto) 0.00 K/uL Basophils # (Auto) 0.02 K/uL RDW Standard Deviation 52.2 fL RDW Coefficient of Variation 14.7 % Immature Granulocyte % (Auto) 0.9 % Immature Granulocyte # (Auto) 0.18 K/uL Sodium Level 138 mmol/L Potassium Level 5.1 mmol/L Chloride Level 107 mmol/L Carbon Dioxide Level 20 mmol/L Anion Gap 11.0 mmol/L Blood Urea Nitrogen 38 mg/dl Creatinine 1.80 mg/dl Est Creatinine Clear Calc Drug Dose 43.2 ml/min Estimated GFR () 35.3 Estimated GFR (Non- 30.5 BUN/Creatinine Ratio 21.3 Random Glucose 121 mg/dl Calcium Level 8.1 mg/dl
--- NOTE | 2016-04-22 08:53 | Progress Note ---
Progress Note Date of Service: Apr 22, 2016. Subjective Complaining of numbness of her right foot. No leg or foot pain. Objective Vital Signs Vital Signs Past 12 Hours Date Time Temp Pulse Resp B/P Pulse Ox O2 Delivery O2 Flow Rate FiO2 04/22/16 08:29 82 18 97/45 91 Room Air 04/22/16 07:59 36.8 88 19 127/54 94 Room Air 04/22/16 07:28 93 18 145/52 97 Nasal Cannula 2.0 04/22/16 06:58 76 18 114/52 95 Nasal Cannula 2.0 04/22/16 05:59 74 16 109/50 98 Nasal Cannula 2.0 04/22/16 05:28 82 15 114/58 Nasal Cannula 04/22/16 04:28 79 16 118/62 91 Nasal Cannula 2.0 04/22/16 04:00 Nasal Cannula 2.0 04/22/16 03:58 36.9 71 19 107/43 92 Nasal Cannula 2.0 04/22/16 03:28 76 17 104/49 91 Nasal Cannula 2.0 04/22/16 02:58 79 18 112/44 94 Nasal Cannula 2.0 04/22/16 02:28 83 21 107/60 95 Nasal Cannula 2.0 04/22/16 01:58 86 15 98/62 92 Nasal Cannula 2.0 04/22/16 01:43 78 12 104/69 93 Nasal Cannula 2.0 04/22/16 01:09 71 15 108/66 96 04/22/16 01:03 69 16 106/57 96 04/22/16 00:58 77 26 94/56 95 04/22/16 00:53 80 22 83/47 97 04/22/16 00:43 77 15 84/58 94 04/22/16 00:42 72 14 99/54 94 04/22/16 00:28 73 18 78/55 94 04/22/16 00:23 73 18 97/46 95 04/22/16 00:00 Nasal Cannula 2.0 04/21/16 23:58 76 19 109/62 92 Nasal Cannula 2.0 04/21/16 23:44 74 15 101/50 95 Nasal Cannula 2.0 04/21/16 22:58 82 13 103/46 94 Nasal Cannula 2.0 04/21/16 22:39 88 12 81/55 95 Nasal Cannula 2.0 04/21/16 22:28 84 14 82/48 98 Nasal Cannula 2.0 04/21/16 22:01 98 23 85/52 98 04/21/16 22:01 98 23 85/52 98 Nasal Cannula 2.0 04/21/16 21:09 87 21 101/48 96 Nasal Cannula 2.0 Exam VSS stable Off luis angel at this time. Dressing intact. Good right DP and PT doppler signals Urine output has picked up. Intake & Output 8-Hour Column 04/21/16 04/21/16 04/22/16 15:59 23:59 07:59 Intake Total 2000 ml 1289 ml 2610 ml Output Total 700 ml 200 ml 250 ml Balance 1300 ml 1089 ml 2360 ml 24-Hour Column 04/22/16 07:59 Intake Total 5899 ml Output Total 1150 ml Balance 4749 ml Laboratory and Microbiology Results Past 24 Hours Test 04/21/16 09:55 04/21/16 13:59 04/21/16 14:56 04/21/16 23:11 Range/Units White Blood Count 9.13 12.53 4.8-10.8 K/uL Red Blood Count 4.26 3.42 4.2-5.4 M/uL Hemoglobin 13.5 11.0 10.1 12.0-16.0 g/dL Hematocrit 40.1 32.3 31.1 37-47 % Mean Corpuscular Volume 94.1 94.4 80-100 fL Mean Corpuscular Hemoglobin 31.7 32.2 25-34 pg Mean Corpuscular Hemoglobin Concent 33.7 34.1 32-36 g/dl RDW Standard Deviation 48.8 49.9 36.4-46.3 fL RDW Coefficient of Variation 14.4 14.6 11.5-14.5 % Platelet Count 251 231 130-400 K/uL Mean Platelet Volume 9.4 9.0 7.4-10.4 fL Prothrombin Time 10.5 9.0-12.0 SECONDS Prothromb Time International Ratio 1.0 0.9-1.1 Activated Partial Thromboplast Time 26.3 21.0-31.0 SECONDS Partial Thromboplastin Ratio 1.0 Sodium Level 141 141 136-145 mmol/L Potassium Level 4.7 3.5-5.1 mmol/L Chloride Level 109 110 98-107 mmol/L Carbon Dioxide Level 23 21 21-32 mmol/L Anion Gap 9.0 10.0 3-11 mmol/L Blood Urea Nitrogen 34 31 7-18 mg/dl Creatinine 1.10 1.20 0.60-1.20 mg/dl Est Creatinine Clear Calc Drug Dose 70.8 64.9 ml/min Estimated GFR () 64.1 57.7 Estimated GFR (Non- 55.3 49.8 BUN/Creatinine Ratio 30.5 26.1 10-20 Random Glucose 102 136 70-99 mg/dl Calcium Level 10.5 9.2 8.5-10.1 mg/dl Neutrophils (%) (Auto) 58.7 % Lymphocytes (%) (Auto) 32.1 % Monocytes (%) (Auto) 7.4 % Eosinophils (%) (Auto) 1.0 % Basophils (%) (Auto) 0.2 % Neutrophils # (Auto) 7.35 1.4-6.5 K/uL Lymphocytes # (Auto) 4.02 1.2-3.4 K/uL Monocytes # (Auto) 0.93 0.11-0.59 K/uL Eosinophils # (Auto) 0.12 0-0.5 K/uL Basophils # (Auto) 0.03 0-0.2 K/uL Immature Granulocyte % (Auto) 0.6 % Immature Granulocyte # (Auto) 0.08 0.00-0.02 K/uL Test 04/22/16 04:40 Range/Units White Blood Count 20.20 4.8-10.8 K/uL Red Blood Count 2.91 4.2-5.4 M/uL Hemoglobin 9.2 12.0-16.0 g/dL Hematocrit 28.5 37-47 % Mean Corpuscular Volume 97.9 80-100 fL Mean Corpuscular Hemoglobin 31.6 25-34 pg Mean Corpuscular Hemoglobin Concent 32.3 32-36 g/dl Platelet Count 234 130-400 K/uL Mean Platelet Volume 9.6 7.4-10.4 fL Neutrophils (%) (Auto) 77.2 % Lymphocytes (%) (Auto) 12.4 % Monocytes (%) (Auto) 9.4 % Eosinophils (%) (Auto) 0.0 % Basophils (%) (Auto) 0.1 % Neutrophils # (Auto) 15.60 1.4-6.5 K/uL Lymphocytes # (Auto) 2.51 1.2-3.4 K/uL Monocytes # (Auto) 1.89 0.11-0.59 K/uL Eosinophils # (Auto) 0.00 0-0.5 K/uL Basophils # (Auto) 0.02 0-0.2 K/uL RDW Standard Deviation 52.2 36.4-46.3 fL RDW Coefficient of Variation 14.7 11.5-14.5 % Immature Granulocyte % (Auto) 0.9 % Immature Granulocyte # (Auto) 0.18 0.00-0.02 K/uL Sodium Level 138 136-145 mmol/L Potassium Level 5.1 3.5-5.1 mmol/L Chloride Level 107 98-107 mmol/L Carbon Dioxide Level 20 21-32 mmol/L Anion Gap 11.0 3-11 mmol/L Blood Urea Nitrogen 38 7-18 mg/dl Creatinine 1.80 0.60-1.20 mg/dl Est Creatinine Clear Calc Drug Dose 43.2 ml/min Estimated GFR () 35.3 Estimated GFR (Non- 30.5 BUN/Creatinine Ratio 21.3 10-20 Random Glucose 121 70-99 mg/dl Calcium Level 8.1 8.5-10.1 mg/dl Imp: Post revasc of right lower extremity for rest pain Coronary artery disease, she describes it as soft plaque Carotid artery disease, being followed with [facility] at this time Real insufficiency, 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
[2016-04-22] MEDS ORDERED: PANTOprazole SOD 40 MG TAB PO SCH (09:00)
[2016-04-22] MEDS ORDERED: PANTOprazole INJ 40 MG in SYRINGE 0 ML IV SCH (11:00)
[2016-04-22] MEDS ORDERED: ALBUT/IPRATROP 3MG/0.5MG NEB 3 ML VIAL INH PRN (12:00)
[2016-04-22] MEDS: SIMVASTATIN 40 MG TAB PO SCH (21:05)
[2016-04-22] MEDS: OXYCODONE/ACETAMINOPHEN 5-325 TAB PO PRN (21:10)
[2016-04-23] VITALS (16 sets, daily range): BP systolic 88–139; BP diastolic 41–70; PULSE 80–147; TEMP 36.8–37.2; O2SAT 93–100
[2016-04-23] MEDS: SODIUM CHLORIDE 0.9% 1000ML 1,000 ML IV SCH (01:10)
[2016-04-23] MEDS: OXYCODONE/ACETAMINOPHEN 5-325 TAB PO PRN (05:00)
[2016-04-23 05:48] LABS: HEMATOCRIT 22.8 % (37-47); MEAN CORPUSCULAR HEMOGLOBIN 30.8 pg (25-34); MEAN CORPUSCULAR HGB CONC 32.5 g/dl (32-36); MEAN PLATELET VOLUME 9.6 fL (7.4-10.4); PLATELET COUNT 152 K/uL (130-400); WHITE BLOOD COUNT 9.42 K/uL (4.8-10.8)
[2016-04-23 06:03] LABS: ANISOCYTOSIS PRESENT; BASO % 0.2 %; BASO ABS # 0.02 K/uL (0-0.2); COMPLETE YES; EOS % 0.7 %; IG% 0.6 %; LYMPH % 26.3 %; LYMPH ABS # 2.48 K/uL (1.2-3.4); MONO % 8.3 %; NEUT % 63.9 %; POLYCHROMASIA 1+
[2016-04-23 06:20] LABS: BUN/CREATININE RATIO 22.9 (10-20); CALCIUM 8.3 mg/dl (8.5-10.1); CREATININE 1.1 mg/dl (0.60-1.20); MAGNESIUM 1.7 mg/dl (1.8-2.4); PHOSPHORUS 2.6 mg/dl (2.5-4.9)
[2016-04-23] MEDS: GABAPENTIN 300 MG CAP PO SCH ×2 (07:52→20:52)
[2016-04-23] MEDS: OMEGA-3 (PURIFIED FISH OIL) 1 GM CAP PO SCH ×2 (07:52→20:53)
[2016-04-23] MEDS: VENLAFAXINE HCL XR 75 MG CAPXR PO SCH (07:52)
[2016-04-23] MEDS: FLUTICASONE PROPIONATE NA SPR 16 GM BTL SCH (07:52)
[2016-04-23] MEDS: PANTOprazole SOD 40 MG TAB PO SCH (07:53)
[2016-04-23] MEDS: MULTIVITAMIN TAB PO SCH (07:53)
[2016-04-23] MEDS: ASPIRIN 81 MG ECTAB PO SCH (07:54)
[2016-04-23] MEDS: VENLAFAXINE HCL XR 150 MG CAPXR PO SCH (07:54)
[2016-04-23] MEDS: LORATADINE 10 MG TAB PO SCH (07:54)
[2016-04-23] MEDS: DOCUSATE SODIUM 100 MG CAP PO SCH ×2 (07:54→20:52)
[2016-04-23] MEDS: CLOPIDOGREL BISULFATE 75 MG TAB PO SCH (07:54)
[2016-04-23] MEDS: MAGNESIUM OXIDE 400 MG TAB PO SCH ×2 (07:55→20:52)
[2016-04-23] MEDS: CHOLECALCIFEROL 1000 INTER.UNIT TAB PO SCH (07:55)
--- NOTE | 2016-04-23 08:40 | Critical Care Progress Note ---
Critical Care Progress Note Date of Service Apr 23, 2016. Attending Dr. Sepulveda Subjective uneventful night, drop in hct to 22, received one unit of PRBC , dilutional no evidence of bleeding, the pt is asymptomatic and not tachy either. Objective brief period of hypotension requiring briefly Phenylephrine . fluid responsive. slight rise in creat. denies pain, minimal numbness in the right foot , no sob , no abdominal pain. ambulatory to the chair without difficulty. Assessment & Plan #1 PAD, s/p thrombectomy and endarterectomy on the right fem. #2 COPD, undiagnosed but behaved that way. #3 anemia, dilutional, almost certain, all cell lineage dropped equally. no evidence of hematoma , guaiac is pending, #4 peripheral neuropathy. #5 CKD III, improving GFR with hydration. Plan: #1 transfuse 1 U RBC , given her comorbidity. #2 check guaiac. #3 continue aspirin , plavix and Lovenox. #4 duoneb prn. needs eval for COPD as OP. #5 stop IVF after this bag if oral intake is at 100%. #6 will keep Gabapentin at the 300 mg dose bid, seems to control her symptoms. #7 MRSA previous colonization, negative on this admission. #8 Hct after transfusion. #9 discussed with the staff on rounds in details. #[address] Cochran. CCt 35 min. Data Medications: Current Inpatient Medications Medications (Trade) Dose Ordered Sig/Kimberly Route Start Time Stop Time Status Last Admin Dose Admin Ioversol (Optiray 320) 125 ml UD PRN IV 04/21/16 08:15 04/25/16 08:14 Acetaminophen (Tylenol Tab) 650 mg Q4H PRN PO 04/21/16 13:45 05/21/16 13:44 04/22/16 16:23 650 MG Oxycodone/ Acetaminophen (Percocet 5-325mg Tab) `1-2 TABS FOR MODER... Q4H PRN PO 04/21/16 13:45 05/05/16 13:44 04/23/16 05:00 2 TAB Ondansetron HCl (Zofran Inj) 4 mg Q6H PRN IV 04/21/16 13:45 05/21/16 13:44 Enoxaparin Sodium (Lovenox Inj) 30 mg Q12 SQ 04/22/16 08:00 05/22/16 07:59 04/22/16 21:05 30 MG Aspirin (Ecotrin Tab) 81 mg DAILY PO 04/22/16 09:00 05/22/16 08:59 04/23/16 07:54 81 MG Clopidogrel Bisulfate (plAVix TAB) 75 mg DAILY PO 04/22/16 09:00 05/22/16 08:59 04/23/16 07:54 75 MG Docusate Sodium (coLACE CAP) 100 mg BID PO 04/21/16 21:00 05/21/16 20:59 04/23/16 07:54 100 MG Fish Oil ([place]-3 (Purified Fish Oil) Cap) 1 gm BID PO 04/21/16 21:00 05/21/16 20:59 04/23/16 07:52 1 GM Fluticasone Propionate (Flonase Nasal [place]) 1 sprays DAILY NA 04/22/16 09:00 05/22/16 08:59 04/23/16 07:52 1 SPRAYS Loratadine (Claritin Tab) 10 mg DAILY PO 04/22/16 09:00 05/22/16 08:59 04/23/16 07:54 10 MG Magnesium Oxide (Mag-Ox Tab) 400 mg BID PO 04/21/16 21:00 05/21/16 20:59 04/23/16 07:55 400 MG Metoprolol Succinate (Toprol Xl Tab) 25 mg BID PRN PO 04/21/16 13:45 05/21/16 13:44 Multivitamins (Multivitamin Tab) 1 tab DAILY PO 04/22/16 09:00 05/22/16 08:59 04/23/16 07:53 1 TAB Simvastatin (Zocor Tab) 40 mg QPM PO 04/21/16 21:00 05/21/16 20:59 04/22/16 21:05 40 MG Venlafaxine HCl (effeXOR EXTENDED REL CAP) 75 mg DAILY PO 04/22/16 09:00 05/22/16 08:59 04/23/16 07:52 75 MG Venlafaxine HCl (effeXOR EXTENDED REL CAP) 150 mg DAILY PO 04/22/16 09:00 05/22/16 08:59 04/23/16 07:54 150 MG Cholecalciferol (Vitamin D Tab) 2,000 inter.unit DAILY PO 04/22/16 09:00 05/22/16 08:59 04/23/16 07:55 2,000 INTER.UNIT Pantoprazole Sodium 40 mg 40 mg QAM PO 04/21/16 18:30 05/21/16 18:29 04/23/16 07:53 40 MG Sodium Chloride 1,000 ml @ 80 mls/hr [id number] IV 04/22/16 00:15 05/22/16 00:14 04/23/16 01:10 80 MLS/HR Phenylephrine HCl/ Dextrose (Lucio-Synephrine Inj/D5W 500ml) 502 ml @ 0 mls/hr Q0M PRN IV 04/22/16 00:45 05/22/16 00:44 04/22/16 01:02 42 MLS/HR Albuterol/ Ipratropium (Duoneb) 3 ml QIDR PRN INH 04/22/16 12:00 05/22/16 11:59 Gabapentin (Neurontin Cap) 300 mg BID PO 04/22/16 09:00 05/22/16 08:59 04/23/16 07:52 300 MG I & O: 24-Hour Column 04/23/16 07:59 Intake Total 4405 ml Output Total 4950 ml Balance -545 ml Vital Signs: Date Time Temp Pulse Resp B/P Pulse Ox O2 Delivery O2 Flow Rate FiO2 04/23/16 07:01 36.8 87 16 106/42 97 04/23/16 06:43 37.0 89 18 111/63 99 04/23/16 06:00 80 16 102/49 04/23/16 04:00 36.9 102 14 88/52 95 Room Air 04/23/16 04:00 Room Air 04/23/16 02:00 88 22 89/54 97 04/23/16 00:01 Room Air 04/22/16 23:58 37.1 94 19 93/47 04/22/16 22:17 94 24 100/57 04/22/16 21:59 85 18 80/45 Room Air 04/22/16 20:58 99 19 97/38 95 Room Air 04/22/16 20:00 Room Air 04/22/16 20:00 37.2 90 18 102/56 95 Room Air 04/22/16 18:00 89 16 106/48 98 Room Air 04/22/16 16:00 36.7 101 20 104/39 97 Room Air 04/22/16 16:00 Room Air 04/22/16 14:00 88 20 126/50 94 Room Air 04/22/16 12:00 36.9 83 20 130/59 96 Room Air 04/22/16 12:00 Room Air 04/22/16 10:00 36.9 82 22 110/51 92 Room Air 04/22/16 09:28 84 23 106/55 94 Room Air 04/22/16 08:54 91 16 134/68 96 Room Air 04/22/16 08:50 100 25 134/65 98 Room Air 04/22/16 08:44 82 18 106/49 93 Room Air 04/22/16 08:29 82 18 97/45 91 Room Air VSS, BP at 106 systolic with MAP of 70. S1S2 RRR. lungs are clear. abdomen is benign. no hematoma at the surgical site. no change in diameter or tenderness either site is clean. the post tib and pedals are positive by doppler. neuro is intact. she does have full sensation in the right foot. Laboratory Results: Last 24 Hours Test 04/23/16 04:40 White Blood Count 9.42 K/uL Red Blood Count 2.40 M/uL Hemoglobin 7.4 g/dL Hematocrit 22.8 % Mean Corpuscular Volume 95.0 fL Mean Corpuscular Hemoglobin 30.8 pg Mean Corpuscular Hemoglobin Concent 32.5 g/dl Platelet Count 152 K/uL Mean Platelet Volume 9.6 fL Neutrophils (%) (Auto) 63.9 % Lymphocytes (%) (Auto) 26.3 % Monocytes (%) (Auto) 8.3 % Eosinophils (%) (Auto) 0.7 % Basophils (%) (Auto) 0.2 % Neutrophils # (Auto) 6.01 K/uL Lymphocytes # (Auto) 2.48 K/uL Monocytes # (Auto) 0.78 K/uL Eosinophils # (Auto) 0.07 K/uL Basophils # (Auto) 0.02 K/uL RDW Standard Deviation 50.0 fL RDW Coefficient of Variation 14.5 % Immature Granulocyte % (Auto) 0.6 % Immature Granulocyte # (Auto) 0.06 K/uL Polychromasia 1+ Anisocytosis PRESENT Sodium Level 143 mmol/L Potassium Level 4.0 mmol/L Chloride Level 113 mmol/L Carbon Dioxide Level 20 mmol/L Anion Gap 10.0 mmol/L Blood Urea Nitrogen 25 mg/dl Creatinine 1.10 mg/dl Est Creatinine Clear Calc Drug Dose 71.7 ml/min Estimated GFR () 64.1 Estimated GFR (Non- 55.3 BUN/Creatinine Ratio 22.9 Random Glucose 84 mg/dl Calcium Level 8.3 mg/dl Phosphorus Level 2.6 mg/dl Magnesium Level 1.7 mg/dl Albumin 2.5 gm/dl
[2016-04-23] MEDS: ENOXAPARIN 30 MG/0.3 ML SYR SQ SCH ×2 (09:37→20:54)
--- NOTE | 2016-04-23 10:33 | Progress Note ---
Progress Note Date of Service: Apr 23, 2016. Subjective No new complaints. Foot feeling better Objective Vital Signs Vital Signs Past 12 Hours Date Time Temp Pulse Resp B/P Pulse Ox O2 Delivery O2 Flow Rate FiO2 04/23/16 09:00 36.9 87 18 114/63 93 04/23/16 08:30 37.2 84 18 105/41 93 04/23/16 08:00 Room Air 04/23/16 07:30 36.9 96 16 111/48 96 04/23/16 07:01 36.8 87 16 106/42 97 04/23/16 06:43 37.0 89 18 111/63 99 04/23/16 06:00 80 16 102/49 04/23/16 04:00 36.9 102 14 88/52 95 Room Air 04/23/16 04:00 Room Air 04/23/16 02:00 88 22 89/54 97 04/23/16 00:01 Room Air 04/22/16 23:58 37.1 94 19 93/47 Exam VSS Afebrile Wound dry and clean. NO drainage Good urine output Good doppler flow, palpable DP pulse Intake & Output 8-Hour Column 04/22/16 04/22/16 04/23/16 15:59 23:59 07:59 Intake Total 1880 ml 1335 ml 1190 ml Output Total 1400 ml 1800 ml 1750 ml Balance 480 ml -465 ml -560 ml 24-Hour Column 04/23/16 07:59 Intake Total 4405 ml Output Total 4950 ml Balance -545 ml Laboratory and Microbiology Results Past 24 Hours Test 04/23/16 04:40 Range/Units White Blood Count 9.42 4.8-10.8 K/uL Red Blood Count 2.40 4.2-5.4 M/uL Hemoglobin 7.4 12.0-16.0 g/dL Hematocrit 22.8 37-47 % Mean Corpuscular Volume 95.0 80-100 fL Mean Corpuscular Hemoglobin 30.8 25-34 pg Mean Corpuscular Hemoglobin Concent 32.5 32-36 g/dl Platelet Count 152 130-400 K/uL Mean Platelet Volume 9.6 7.4-10.4 fL Neutrophils (%) (Auto) 63.9 % Lymphocytes (%) (Auto) 26.3 % Monocytes (%) (Auto) 8.3 % Eosinophils (%) (Auto) 0.7 % Basophils (%) (Auto) 0.2 % Neutrophils # (Auto) 6.01 1.4-6.5 K/uL Lymphocytes # (Auto) 2.48 1.2-3.4 K/uL Monocytes # (Auto) 0.78 0.11-0.59 K/uL Eosinophils # (Auto) 0.07 0-0.5 K/uL Basophils # (Auto) 0.02 0-0.2 K/uL RDW Standard Deviation 50.0 36.4-46.3 fL RDW Coefficient of Variation 14.5 11.5-14.5 % Immature Granulocyte % (Auto) 0.6 % Immature Granulocyte # (Auto) 0.06 0.00-0.02 K/uL Polychromasia 1+ Anisocytosis PRESENT Sodium Level 143 136-145 mmol/L Potassium Level 4.0 3.5-5.1 mmol/L Chloride Level 113 98-107 mmol/L Carbon Dioxide Level 20 21-32 mmol/L Anion Gap 10.0 3-11 mmol/L Blood Urea Nitrogen 25 7-18 mg/dl Creatinine 1.10 0.60-1.20 mg/dl Est Creatinine Clear Calc Drug Dose 71.7 ml/min Estimated GFR () 64.1 Estimated GFR (Non- 55.3 BUN/Creatinine Ratio 22.9 10-20 Random Glucose 84 70-99 mg/dl Calcium Level 8.3 8.5-10.1 mg/dl Phosphorus Level 2.6 2.5-4.9 mg/dl Magnesium Level 1.7 1.8-2.4 mg/dl Albumin 2.5 3.4-5.0 gm/dl Imp: Post revasc of right lower extremity for rest pain Coronary artery disease, she describes it as soft plaque Carotid artery disease, being followed with [facility] at this time Real insufficiency, stage III by history. Contrast induced nephropathy - resolved Plan: Continue present treatment Will transfuse two units for hgb of 7.4 Will transfer to floor D/C Mendez Will D/C iv once blood is in Creatinine improved. Back to baseline Most likely home tomorrow
[2016-04-23] MEDS ORDERED: NURSING VERBAL MED ORDER ONE (10:45)
[2016-04-23 14:29] LABS: HEMATOCRIT 28.3 % (37-47)
[2016-04-23] MEDS: SIMVASTATIN 40 MG TAB PO SCH (20:52)
[2016-04-24] VITALS (7 sets, daily range): BP systolic 90–118; BP diastolic 47–64; PULSE 75–140; TEMP 36.4; O2SAT 94–97
[2016-04-24] MEDS ORDERED: NURSING VERBAL MED ORDER ONE ×2 (00:45→01:00)
[2016-04-24] MEDS ORDERED: METOPROLOL SUCC 25MG EXT REL TAB PO STA (01:03)
[2016-04-24 06:06] LABS: HEMATOCRIT 29.1 % (37-47); MEAN CELL VOLUME 92.4 fL (80-100); MEAN CORPUSCULAR HEMOGLOBIN 30.5 pg (25-34); MEAN PLATELET VOLUME 9.5 fL (7.4-10.4); PLATELET COUNT 159 K/uL (130-400); RED BLOOD COUNT 3.15 M/uL (4.2-5.4); WHITE BLOOD COUNT 8.51 K/uL (4.8-10.8)
--- NOTE | 2016-04-24 08:29 | Anesthesiology Progress Note ---
Anesthesia Post Op Note Date & Time Apr 24, 2016 at 08:28 Vital Signs Pain Intensity: 0.0 Vital Signs Past 12 Hours Date Time Temp Pulse Resp B/P Pulse Ox O2 Delivery O2 Flow Rate FiO2 04/24/16 07:13 36.4 75 16 104/64 94 Room Air 04/24/16 05:56 78 90/53 97 Room Air 04/24/16 02:57 110 104/47 97 2.0 04/24/16 01:15 116 102/62 04/24/16 00:00 126 04/24/16 00:00 96 140 118 04/23/16 23:46 37.0 147 18 128/69 99 Room Air 04/23/16 23:25 Room Air Notes Mental Status: alert / awake / arousable, participated in evaluation Pt Amnestic to Procedure: Yes Nausea / Vomiting: adequately controlled Pain: adequately controlled Airway Patency, RR, SpO2: stable & adequate BP & HR: stable & adequate Hydration State: stable & adequate Anesthetic Complications: no major complications apparent
[2016-04-24] MEDS ORDERED: METOPROLOL SUCC 25MG EXT REL TAB PO SCH (09:00)
[2016-04-24] MEDS: PANTOprazole SOD 40 MG TAB PO SCH (09:33)
[2016-04-24] MEDS: FLUTICASONE PROPIONATE NA SPR 16 GM BTL SCH (09:33)
[2016-04-24] MEDS: CHOLECALCIFEROL 1000 INTER.UNIT TAB PO SCH (09:33)
[2016-04-24] MEDS: GABAPENTIN 300 MG CAP PO SCH (09:33)
[2016-04-24] MEDS: ASPIRIN 81 MG ECTAB PO SCH (09:34)
[2016-04-24] MEDS: LORATADINE 10 MG TAB PO SCH (09:34)
[2016-04-24] MEDS: MULTIVITAMIN TAB PO SCH (09:34)
[2016-04-24] MEDS: MAGNESIUM OXIDE 400 MG TAB PO SCH (09:34)
[2016-04-24] MEDS: VENLAFAXINE HCL XR 75 MG CAPXR PO SCH (09:34)
[2016-04-24] MEDS: OMEGA-3 (PURIFIED FISH OIL) 1 GM CAP PO SCH (09:34)
[2016-04-24] MEDS: VENLAFAXINE HCL XR 150 MG CAPXR PO SCH (09:34)
[2016-04-24] MEDS: CLOPIDOGREL BISULFATE 75 MG TAB PO SCH (09:34)
[2016-04-24] MEDS: DOCUSATE SODIUM 100 MG CAP PO SCH (09:34)
[2016-04-24] MEDS: ENOXAPARIN 30 MG/0.3 ML SYR SQ SCH (09:35)
[2016-04-24] MEDS ORDERED: NICO21DI4 TOP (09:43)
[2016-04-24] MEDS ORDERED: DOCU-94 PO (09:43)
[2016-04-24] MEDS ORDERED: OXYC-57 PO (09:43)
--- NOTE | 2016-04-24 09:48 | Discharge Instructions ---
Discharge Instructions Admission Reason for Admission: Severe Pad W/Rest Pain, Ischemic Right Leg Discharge Discharge Diagnosis / Problem: s/p Right leg thrombectomy, Right leg ischemia Discharge Goals Goal(s): Therapeutic intervention Activity Recommendations Activity Limitations: as noted below Lifting Limitations: no more than 5 pounds, until after follow-up appointment Exercise/Sports Limitations: gradually increase as tolerated May Resume Sexual Activity: when tolerated Driving or Machine Use: No driving until follow up appt. MAY SHOWER, NO BATHING . Instructions / Follow-Up Instructions / Follow-Up Follow up appt in office with Dr Cochran or Karina Marsh PA-C, in 2 weeks for staple removal. Current Hospital Diet Patient's current hospital diet: AHA Diet (Heart Healthy) Discharge Diet Recommended Diet: AHA Diet (Heart Healthy) Procedures Procedures Performed: Thrombectomy Right femoral popliteal bypass; Right lower extremity arteriogram, mechanical arthrectomy Right iliac and femoral artery; Balloon angioplasty Right iliac and common femoral artery Pending Studies Studies pending at discharge: no Medical Emergencies . Who to Call and When: Medical Emergencies: If at any time you feel your situation is an emergency, please call 911 immediately. . Non-Emergent Contact Non-Emergency issues call your: Primary Care Provider . "Provider Documentation" section prepared by Karina Marsh. VTE Core Measure Inpt VTE Proph given/why not?: Enoxaparin (Lovenox) [place] Drug Monitoring Program Search Results: patient reviewed within database, no issues identified
--- NOTE | 2016-04-24 09:53 | Progress Note ---
Progress Note Date of Service: Apr 24, 2016. 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 Pt sates feeling ok , mild pain in R groin incision, minimal drainage. Ambulating well. No foot pain. Objective Vital Signs Vital Signs Past 12 Hours Date Time Temp Pulse Resp B/P Pulse Ox O2 Delivery O2 Flow Rate FiO2 04/24/16 09:41 75 118/61 04/24/16 07:15 Room Air 04/24/16 07:13 36.4 75 16 104/64 94 Room Air 04/24/16 05:56 78 90/53 97 Room Air 04/24/16 02:57 110 104/47 97 2.0 04/24/16 01:15 116 102/62 04/24/16 00:00 126 04/24/16 00:00 96 140 118 04/23/16 23:46 37.0 147 18 128/69 99 Room Air 04/23/16 23:25 Room Air Exam CONST: A&O x4, NAD, obese, chronically ill appearing female CHEST: RRR lungs decreased, but ctab ABD: soft, nontender, + bs x 4 quad EXT: R groin incision C/I with kash. Minimal serous bloody drainage on dressing. + palpable DP BLE. Feet warm and pink Intake & Output 8-Hour Column 04/23/16 04/23/16 04/24/16 15:59 23:59 07:59 Intake Total 1380 ml 670 ml Output Total 800 ml Balance 580 ml 670 ml 24-Hour Column 04/24/16 07:59 Intake Total 2050 ml Output Total 800 ml Balance 1250 ml Laboratory and Microbiology Results Past 24 Hours Test 04/23/16 14:12 04/24/16 05:34 Range/Units Hemoglobin 9.5 9.6 12.0-16.0 g/dL Hematocrit 28.3 29.1 37-47 % White Blood Count 8.51 4.8-10.8 K/uL Red Blood Count 3.15 4.2-5.4 M/uL Mean Corpuscular Volume 92.4 80-100 fL Mean Corpuscular Hemoglobin 30.5 25-34 pg Mean Corpuscular Hemoglobin Concent 33.0 32-36 g/dl RDW Standard Deviation 54.4 36.4-46.3 fL RDW Coefficient of Variation 16.4 11.5-14.5 % Platelet Count 159 130-400 K/uL Mean Platelet Volume 9.5 7.4-10.4 fL Creatinine 1.00 0.60-1.20 mg/dl Est Creatinine Clear Calc Drug Dose 78.8 ml/min Estimated GFR () 71.9 Estimated GFR (Non- 62.1 ASSESSMENT and PLAN: s/p RLE BPG thrombectomy, 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 D/C home today. Encouraged smoking cessation, pt requesting rx for nicotine patch. Will see in office in 2 weeks.
--- NOTE | 2016-05-05 10:36 | Progress Note ---
Progress Note I assisted Dr Cochran with Brittni Nash's Thrombectomy Right femoral popliteal bypass; Right lower extremity arteriogram, mechanical arthrectomy Right iliac and femoral artery; Balloon angioplasty Right iliac and common femoral artery, on 04/21/16, d/t lack of resident availability.
--- NOTE | 2016-05-05 12:31 | DISCHARGE SUMMARY ---
ADMISSION DIAGNOSES: 1. Right lower extremity severe peripheral arterial disease with rest pain. 2. Occluded prosthetic RLE fem-pop bypass graft. 3. Right common femoral artery occlusion. DISCHARGE DIAGNOSES: Status post right lower extremity thrombectomy of the right fem-pop bypass and mechanical atherectomy of right iliac and femoral artery and balloon angioplasty of right iliac and femoral artery. DISCHARGE CONDITION: Stable. CONSULTATIONS IN THE HOSPITAL: Included critical care. PROCEDURES IN THE HOSPITAL: Included: 1. Right lower extremity thrombectomy of fem-pop bypass. 2. Arteriography with mechanical atherectomy of right iliac and femoral artery. 3. Balloon angioplasty of right iliac and femoral artery performed on 04/21/2016 without any significant complications. HISTORY OF PRESENT ILLNESS: Mrs. Nash is a 56-year-old female with a history of right lower extremity peripheral arterial disease who is status post right lower extremity prosthetic fem-pop bypass graft performed due to claudication, apparently at another facility in March of 2015. The patient states that she only had a short period of followup before her surgeon left the area and she has not had it checked since. She had been having some continued claudication after initial period of relief; however, she also has a history of spinal stenosis and she attributed her difficulty ambulating to neurogenic claudication. She stated that 4 days prior to her arrival in the hospital on 04/21/2016, she had been having severe pain, numbness and coolness of her right foot. While lying in bed, they kept her awake for at least 2 nights. When she saw her PCP a few days later, they sent her to [facility] where studies were done, demonstrating occluded bypass graft. A CTA performed the morning of her arrival at [facility] confirmed the bypass graft occlusion as well as severe iliac and common femoral artery stenosis or occlusion. The patient stated continued pain in her right foot which was only slightly less than it was a few nights ago but is unable to take more than 15-20 steps before stopping. Due to her severe symptoms, she was recommended to undergo a right lower extremity common femoral endarterectomy and possible right lower extremity thrombectomy and angiography with intervention. The procedure risks, benefits and alternatives were discussed with the patient. She expressed understanding and agreement to proceed. HOSPITAL COURSE: The patient was admitted after undergoing her right lower extremity thrombectomy and atherectomy and angioplasty. She did well postoperatively, had relief of her discomfort and did have some postop anemia which was expected and she was transfused. She also appeared to have some very mild initial contrast induced nephropathy with a peak creatinine of 1.8 from baseline of 1.1, which returned to baseline within 1-2 days. Hemoglobin day of discharge was 9.6, from her admission baseline of 10. PHYSICAL EXAMINATION: VITAL SIGNS: On day of discharge, her vital signs were as follows: Temperature of 36.4, pulse of 75, respiratory rate of 16 and blood pressure 118/61, with pulse oximetry of 94% on room air. CONSTITUTIONAL: The patient is an obese, mildly chronically ill-appearing, middle-aged female in no acute distress. She ambulated without assistance with frequent stops due to claudication. She is alert and oriented x4 and in no significant distress. HEAD: Normocephalic and atraumatic. EYES: EOMI. ENMT: Exam demonstrates no hearing loss, rhinorrhea or pharyngeal erythema. NECK: Supple, nontender with a midline trachea without masses or crepitus. LUNGS: Demonstrate no dyspnea. They are decreased throughout but clear bilaterally. CARDIOVASCULAR: Demonstrated nondisplaced apical impulse with a regular rate and rhythm without murmurs, lifts, heaves, thrills or rubs. Her peripheral pulses were full and equal in all extremities unless otherwise noted, specifically they were normal in her carotid, brachial and radial pulses. Her right femoral pulse was +3, left was +3. Her bilateral lower extremity distal DP pulses are palpable at +1. Her PTs are present with Doppler. Her bilateral feet were warm and pink. ABDOMEN: Soft, nontender with normoactive bowel sounds in all 4 quadrants without guarding or rebound. There was no flank or CVA tenderness. MUSCULOSKELETAL: Demonstrates normal tone and strength for age. Bilateral upper extremities demonstrate no cyanosis, edema, clubbing, varicosities or ulcers. The patient's right groin surgical incision is well approximated and healing appropriately. There are kash in place. There is minimal bloody drainage on the dressing. She has some mild local ecchymosis, tenderness and edema which is to be expected, but no erythema. NEUROLOGIC: The patient had grossly intact cranial nerves and grossly intact sensation. DIET UPON DISCHARGE: Should be a low-cholesterol AHA diet. MEDICATIONS UPON DISCHARGE: Were reconciled in the chart and are as per her discharge instructions. FOLLOWUP: Should be with Dr. Cochran within 2 weeks for reevaluation and removal of her kash. She was advised to call the office with any other questions or concerns. JACK
--- NOTE | 2016-05-23 17:18 | OPERATIVE REPORT ---
DATE OF OPERATION: 04/21/2016 PREOPERATIVE DIAGNOSIS: Ischemic right lower extremity. POSTOPERATIVE DIAGNOSIS: Same. PROCEDURES: 1. Right lower extremity arteriography. 2. Mechanical atherectomy of right common femoral artery and external iliac artery. 3. Balloon angioplasty of the external iliac and common femoral artery. 4. Thrombectomy of the right fem-pop bypass. SURGEON: Dr. Cochran. MILK RECEIVER [employer]: Karina Marsh PA-C. ANESTHETIC: General. PROCEDURE INDICATIONS: The patient is a 56-year-old female who has had a fem-pop bypass in the past. She presented with ischemia of the right lower extremity. She had occlusion of the bypass graft as well as the external iliac, common femoral arteries. Surgery with possible intervention of the iliac was recommended. She understood the risks, options and benefits and agreed to have this procedure. PROCEDURE IN DETAIL: The patient was taken to the operating room and placed in supine position. After general anesthesia was accomplished, incision was made over the bypass graft just below the right groin. The bypass graft was identified. It was a prosthetic material. A transverse graftotomy was then performed. Using a #4 Nathaly catheter, clot was removed proximally and distally from the graft. It was extremely fresh clot, there was backbleeding seen. There was slight amount of inflow noted. At that point, the 8-Polish sheath was inserted proximally. The patient had been heparinized prior to this. Arteriography was performed, which showed severely diseased external iliac and common femoral artery. A 0.014 jet wire was then inserted. Using a 2.4 Jetstream atherectomy catheter, mechanical atherectomy was performed of the common femoral artery and external iliac artery. Nice flow channel was made with the atherectomy device. This then was ballooned with a 6 x108 x 60 balloon. The external iliac was dilated to the eighth and the common femoral dilated to the sixth. At that point, completion angio showed that the external iliac, common femoral arteries are widely patent. The graftotomy incision was then closed with CV6 Hale-Juice suture. Clamps were removed and excellent flow was seen distally. The foot pinked up at the end of the procedure and good Doppler signals were heard distally. Adequate hemostasis was noted of the wound. The wound was then closed in the usual fashion using running 3-0 Vicryl suture for the subcutaneous layer and kash for the skin. We did do an angiogram prior to closing the aortotomy distally also, which showed the distal anastomosis of the femoral popliteal bypass to be widely patent with good outflow of vessel seen. Karina Marsh assisted due to lack of resident availability. The patient left the operating room in satisfactory condition and tolerated the procedure well. I attest to the content of the Intraoperative Record and any orders documented therein. Any exceptio ns are noted below.
== END 2016-04-24 16:08 | disposition home or self-care (01) | DRG 253 ==
LOC: ENRESERVTM → ENRESERVDT → C.ACU 09:15 → C.MSICU 14:33 → C.MSW 04-23 12:27
PROVIDERS: ADMIT Surgery Vascular Surgery; ATTEND Surgery Vascular Surgery
PROC: 04CK3ZZ Extirpation of Matter from Right Femoral Artery, Percutaneous Approach (ICD-10-PCS; principal; 2016-04-21 09:45)
PROC: 04CM3ZZ Extirpation of Matter from Right Popliteal Artery, Percutaneous Approach (ICD-10-PCS; principal; 2016-04-21 09:45)
PROC: 047K3ZZ Dilation of Right Femoral Artery, Percutaneous Approach (ICD-10-PCS; principal; 2016-04-21 09:45)
PROC: 047C3ZZ Dilation of Right Common Iliac Artery, Percutaneous Approach (ICD-10-PCS; principal; 2016-04-21 09:45)
DX: T82.858A Stenosis of other vascular prosthetic devices, implants and grafts, initial encounter (principal); I74.3 Embolism and thrombosis of arteries of the lower extremities; I74.5 Embolism and thrombosis of iliac artery; Z68.41 Body mass index [BMI] 40.0-44.9, adult; I70.221 Atherosclerosis of native arteries of extremities with rest pain, right leg; N14.1 Nephropathy induced by other drugs, medicaments and biological substances; T50.8X5A Adverse effect of diagnostic agents, initial encounter; I12.9 Hypertensive chronic kidney disease with stage 1 through stage 4 chronic kidney disease, or unspecified chronic kidney disease; N18.3 Chronic kidney disease, stage 3 (moderate); J44.9 Chronic obstructive pulmonary disease, unspecified; I25.10 Atherosclerotic heart disease of native coronary artery without angina pectoris; E66.9 Obesity, unspecified; F17.200 Nicotine dependence, unspecified, uncomplicated; Y83.2 Surgical operation with anastomosis, bypass or graft as the cause of abnormal reaction of the patient, or of later complication, without mention of misadventure at the time of the procedure; Z82.49 Family history of ischemic heart disease and other diseases of the circulatory system; Z83.3 Family history of diabetes mellitus